=== PATIENT | female | born 1970 | race Caucasian/White ===

== ENCOUNTER 2020-10-09 13:24 | Emergency (ER) | payer BC, OTHER ==
[2020-10-09 14:24] LABS: HEMOGLOBIN 12.8 gm/dl (12.3-15.3); RED BLOOD COUNT 4.1 M/UL (4.00-5.10); WHITE BLOOD COUNT 4.6 K/UL (4.5-11.0)
[2020-10-09 14:52] LABS: BUN/CREATININE RATIO 20 (0-10)
== END 2020-10-09 16:16 | disposition home or self-care (01) ==
LOC: ER1 13:24
PROVIDERS: Family Medicine
DX: R07.89 Other chest pain (principal); I10 Essential (primary) hypertension; F41.9 Anxiety disorder, unspecified; R51.9 Headache, unspecified; Z79.891 Long term (current) use of opiate analgesic
CPT/HCPCS: 70450; 71045; 80053; 82550; 82553; 83874; 84439; 84443; 84484; 85025; 85379; 93005; 96374; 96375; 99285; J1200; J1885; J2405; J2765

== ENCOUNTER → 2021-04-10 | Outpatient (CLI) | payer BC | LOC: HEART 5 13:58 | DX: R06.02 Shortness of breath (principal) | CPT/HCPCS: 94010 ==